=== PATIENT | male | born 1995 | race Caucasian/White ===

== ENCOUNTER 2017-06-09 23:47 | Emergency (ER) | payer BC ==
[2017-06-10] MEDS ORDERED: LORazepam 2 MG/ML MDV IVPUSH ONE (00:25)
[2017-06-10] MEDS ORDERED: Ketorolac 30 MG/ML SDV IVPUSH ONE (00:25)
[2017-06-10] MEDS ORDERED: Morphine 4 MG/ML Syringe IVPUSH ONE (00:27)
[2017-06-10] MEDS: Sodium Chloride 0.9% 10 ML Syringe FLUSH PRN ×2 (00:30→00:40)
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
--- NOTE | 2017-06-10 12:37 | CR ---
INDICATION: Post reduction. RIGHT SHOULDER: Frontal and lateral views of the right shoulder were obtained at 0059 to 0101 hours in frontal and Y projections and revealed the previous dislocation to be reduced. A definite fracture site or other bone or joint abnormality was not identified. [facility]
== END 2017-06-10 01:30 | disposition home or self-care (01) ==
LOC: FB.ED 23:47
DX: S43.004A Unspecified dislocation of right shoulder joint, initial encounter (principal); X58.XXXA Exposure to other specified factors, initial encounter; Y93.72 Activity, wrestling
CPT/HCPCS: 73030-RT; 96374; 99283; J1885; J7050

== ENCOUNTER 2018-08-25 22:15 | Emergency (ER) | payer OTHER, BC ==
[2018-08-25] MEDS ORDERED: Amoxicillin/Clavulanate K 875-125 MG Tab PO ONE (23:04)
--- NOTE | 2018-08-25 23:09 | EDM.PDOC ---
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 Wound was initially bleeding. 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 No loss of function. No other acute med issues. BP 119/68 RR 18 Pulse ox 100% on RA temp 36.8 pulse 65 Onset Date: 08/25/18 Onset Time: 21:00 Duration: Hour(s): Location: Reports: Upper Extremity, Left Quality: Reports: Dull Severity: Mild Improves with: Reports: Rest Worsens with: Reports: Movement Context: Reports: Trauma (minor, at work) Associated Symptoms: Reports: No Other Symptoms - Related Data Allergies Allergy/AdvReac Type Severity Reaction Status Date / Time No Known Allergies Allergy Verified 08/25/18 23:28 Home Meds: Home Meds Amoxicillin/Potassium Clav [Augmentin 875-125 Tablet] 1 each PO BID #20 tablet 08/25/18 [Rx] Past Medical History - Past Health History Medical/Surgical History: Denies Medical/Surgical History ED ROS GENERAL - Review of Systems Review Of Systems: See Below Constitutional: Reports: No Symptoms HEENT: Reports: No Symptoms Respiratory: Reports: No Symptoms Cardiovascular: Reports: No Symptoms Endocrine: Reports: No Symptoms GI/Abdominal: Reports: No Symptoms : Reports: No Symptoms Musculoskeletal: Reports: No Symptoms Skin: Reports: Wound (theft thumb tip, no bleed) Neurological: Reports: No Symptoms Psychiatric: Reports: No Symptoms ED EXAM, SKIN/RASH Exam: See Below Exam Limited By: No Limitations General Appearance: Alert, WD/WN, No Apparent Distress Eye Exam: Bilateral Eye: Normal Inspection Ears: Normal External Exam, Normal Canal, Hearing Grossly Normal Nose: Normal Inspection, Normal Mucosa Throat/Mouth: Normal Inspection Head: Atraumatic, Normocephalic Neck: Normal Inspection, Supple, Non-Tender Respiratory/Chest: No Respiratory Distress, Lungs Clear, Normal Breath Sounds Cardiovascular: Normal Peripheral Pulses, Regular Rate, Rhythm, No Edema, No Gallop, No Rub Peripheral Pulses: 2+: Brachial (L) GI/Abdominal: Normal Bowel Sounds, Soft, Non-Tender, No Organomegaly, No Mass, Pelvis Stable (Male) Exam: Deferred Rectal (Males) Exam: Deferred Back Exam: Normal Inspection, Full Range of Motion Extremities: Normal Inspection, Normal Range of Motion, Non-Tender, No Pedal Edema, Normal Capillary Refill Neurological: Alert, Oriented, CN II-XII Intact, Normal Cognition, Normal Gait, No Motor/Sensory Deficits Psychiatric: Normal Affect, Normal Mood Location, Skin: Upper Extremity, Left (tip of thumb) Lymphatic: No Adenopathy Course - Vital Signs Text/Narrative:: 23 y.o.w m came to the ed after he cut in his tip of his left thumb 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 Wound was initially bleeding. 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 No loss of function. No other acute med issues. BP 119/68 RR 18 Pulse ox 100% on RA temp 36.8 pulse 65 PE: WNWD W M witha minor abrasion at tip of left thump 2x3 mm Impression: Left thump minor Abrasion Tx: Augmentin, wound care applied by nurse Reexam: Improved Plan: D/C with instructions Last Recorded V/S: Last Vital Signs Temp 36.9 C 08/25/18 23:10 Pulse 66 08/25/18 23:10 Resp 18 08/25/18 23:10 BP 119/68 08/25/18 23:10 Pulse Ox 100 08/25/18 23:10 - Orders/Labs/Meds Meds: Medications Discontinued Medications Generic Name Dose Route Start Last Admin Trade Name Dinoq PRN Reason Stop Dose Admin Amoxicillin/Clavulanate Potassium 1 tab 08/25/18 23:04 08/25/18 23:16 Augmentin 875 Mg/125 Mg PO 08/25/18 23:05 1 tab ONETIME ONE Administration Departure - Departure Time of Disposition: 23:05 Disposition: Home, Self-Care 01 Condition: Good Clinical Impression: Abrasion of left thumb Qualifiers: Encounter type: initial encounter Qualified Code(s): S60.312A - Abrasion of left thumb, initial encounter - Discharge Information Prescriptions: Amoxicillin/Potassium Clav [Augmentin 875-125 Tablet] 1 each PO BID #20 tablet Referrals: PCP,None [Primary Care Provider] - Forms: ED Department Discharge Additional Instructions: Please apply Neosporin ointment twice daily to the left thumb wound, please take Augmentin Abx as recommended. Please f/u, come back if your symptoms get worse acutely.
== END 2018-08-25 23:25 | disposition home or self-care (01) ==
LOC: FB.ED 22:15
DX: S60.312A Abrasion of left thumb, initial encounter (principal); W26.9XXA Contact with unspecified sharp object(s), initial encounter; Y99.0 Civilian activity done for income or pay
CPT/HCPCS: 99282; A9270

== ENCOUNTER 2018-08-26 15:32 | Emergency (ER) | payer OTHER, BC ==
--- NOTE | 2018-08-26 15:44 | EDM.PDOC ---
ED HPI GENERAL MEDICAL PROBLEM - General Stated Complaint: FOLLOW UP THUMB CHECK Time Seen by Provider: 08/26/18 15:32 - Related Data Allergies Allergy/AdvReac Type Severity Reaction Status Date / Time No Known Allergies Allergy Verified 08/25/18 23:28 Home Meds: Home Meds Amoxicillin/Potassium Clav [Augmentin 875-125 Tablet] 1 each PO BID #20 tablet 08/25/18 [Rx] Past Medical History - Past Health History Medical/Surgical History: Denies Medical/Surgical History Respiratory History: Reports: Asthma Musculoskeletal History: Reports: Other (See Below) Other Musculoskeletal History: Dislocated shoulder. ED ROS GENERAL - Review of Systems Skin: Reports: Wound (left thumb) ED EXAM, SKIN/RASH Extremities: Non-Tender Course - Vital Signs Text/Narrative:: Wound check Departure - Discharge Information Referrals: PCP,None [Primary Care Provider] -
== END 2018-08-26 15:50 ==
LOC: FB.ED 15:32
DX: Z53.21 Procedure and treatment not carried out due to patient leaving prior to being seen by health care provider (principal)

== ENCOUNTER 2019-08-16 03:44 | Emergency (ER) | payer BC ==
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
== END 2019-08-16 04:48 | disposition home or self-care (01) ==
LOC: FB.ED 03:44
DX: S62.337A Displaced fracture of neck of fifth metacarpal bone, left hand, initial encounter for closed fracture (principal); W22.8XXA Striking against or struck by other objects, initial encounter
CPT/HCPCS: 29125; 36415; 73130-LT; 80307; 99283-25